=== PATIENT | female | born 1995 | race American Indian/Alaskan Native ===

== ENCOUNTER 2017-06-07 17:31 | Inpatient (IN) | payer MEDICAID ==
[2017-06-07] MEDS ORDERED: AMBIEN PO PRN (23:29)
--- NOTE | 2017-06-08 03:25 | History and Physical Report ---
History of Present Illness Date of examination: 06/08/17 Date of admission: 06/07/17 17:31 Chief complaint: scheduled induction History of present illness: 21y/o @ 39+6 weeks presents for induction of labor secondary to prior history of a 26 week demise. The patient initiated care in this @ 14 weeks. Her has been complicated by a prior demise, cleft palate in the fetus, asthma, +GBS. The patient is positive for HSV but denies any recent prodrome. Past History Past Medical History: asthma Past Surgical History: no surgical history [employer] History: herpes, other (+GBS) Social history: - Obstetrical History Expected Date of Delivery: 06/09/17 Actual Gestation: 39 Week(s) 6 Day(s) : 3 Para: 1 Hx # Term Pregnancies: 1 Number of Pregnancies: 1 (26 demise) Spontaneous Abortions: 0 Induced : 0 Number of Living Children: 1 Medications and Allergies Allergies Allergy/AdvReac Type Severity Reaction Status Date / Time No Known Allergies Allergy Unverified 06/07/17 18:30 Active Meds: Active Medications Zolpidem Tartrate (Ambien) 10 mg PO QHS PRN PRN Reason: Insomnia Last Admin: 06/07/17 23:34 Dose: 10 mg Review of Systems All systems: negative Genitourinary: no leakage of fluid, no contractions - Vital Signs Vital signs: Vital Signs Pulse BP Pulse Ox 105 H 138/73 100 06/07/17 18:02 06/07/17 18:02 06/07/17 18:02 Temp Pulse Resp BP Pulse Ox 97.6 F 91 H 16 114/58 99 06/07/17 23:36 06/07/17 23:40 06/07/17 23:36 06/07/17 23:40 06/07/17 23:40 - Physical Exam Breasts: Positive: deferred Cardiovascular: Regular rate Lungs: Positive: Clear to auscultation Abdomen: Positive: normal appearance Results All other labs normal. Assessment and Plan - Patient Problems (1) Prior with demise Current Visit: Yes Status: Acute Plan to address problem: admit for induction of labor (2) complicated by cleft lip Current Visit: Yes Status: Acute
[2017-06-08] MEDS ORDERED: BRETHINE IVP PRN (03:27)
[2017-06-08] MEDS ORDERED: POLYCILLIN/NS 2 GM/100 ML 2 GM/100 ML BAG IV ONE ×2 (03:27→20:00)
[2017-06-08] MEDS ORDERED: BRETHINE SUB-Q PRN (03:27)
[2017-06-08] MEDS ORDERED: ePHEDrine SULFATE IV PRN (03:27)
[2017-06-08] MEDS ORDERED: XYLOCAINE 2% INFILTRATI ONE (03:27)
[2017-06-08] MEDS ORDERED: MINERAL OIL PO PRN (03:27)
[2017-06-08] MEDS ORDERED: CERVIDIL VG ONE (03:37)
[2017-06-08] MEDS ORDERED: PITOCin/NS 30 UNIT/500ML 30 UNITS/500 ML BAG IV SCH (04:00)
[2017-06-08] MEDS ORDERED: PITOCin/NS 20 UNIT/1000ML DRIP 20 UNITS/1,000 ML BAG IV SCH (04:00)
[2017-06-08 06:01] LABS: Hematocrit 28.4 % (30.3-42.9); Hemoglobin 8.7 gm/dl (10.1-14.3); Mean Corpuscular HGB Conc 31 % (30-34); Platelet Count 266 K/mm3 (140-440); Red Blood Count 4.42 M/mm3 (3.65-5.03); Red Cell Distribution Width 19.6 % (13.2-15.2)
[2017-06-08 07:02] LABS: Mean Corpuscular Hemoglobin 20 pg (28-32); Mean Corpuscular Volume 64 fl (79-97)
[2017-06-08] MEDS ORDERED: AMPICILLIN/NS 1 GM/50 ML 1 GM/50 ML BAG IV SCH (07:29)
[2017-06-08] MEDS: LACTATED RINGERS 1,000 ML IV SCH (19:43)
[2017-06-08] MEDS: STADOL IV PRN (19:52)
[2017-06-09] MEDS: AMPICILLIN/NS 1 GM/50 ML 1 GM/50 ML BAG IV SCH ×3 (00:10→08:17)
[2017-06-09] MEDS: STADOL IV PRN ×2 (04:28→07:52)
[2017-06-09] MEDS: LACTATED RINGERS 1,000 ML IV SCH ×3 (04:31→11:28)
[2017-06-09] MEDS ORDERED: NARCAN 2 MG/2 ML IV PRN (08:42)
[2017-06-09] MEDS ORDERED: ePHEDrine SULFATE IV PRN (08:42)
[2017-06-09] MEDS ORDERED: fentaNYL-BUPIV 2 MCG/ML-0.125% 200 MCG/100 ML BAG EPIDURAL SCH (09:00)
[2017-06-09] MEDS ORDERED: XYLOCAINE 2% INFILTRATI ONE (09:09)
[2017-06-09] MEDS ORDERED: DULCOLAX PR PRN (12:05)
[2017-06-09] MEDS ORDERED: TUCKS PAD TP PRN (12:05)
[2017-06-09] MEDS ORDERED: LANSINOH TP PRN (12:05)
[2017-06-09] MEDS ORDERED: BENADRYL PO PRN (12:05)
[2017-06-09] MEDS ORDERED: MILK OF MAGNESIA PO PRN (12:05)
[2017-06-09] MEDS ORDERED: PHENERGAN PR PRN (12:05)
[2017-06-09] MEDS ORDERED: TYLENOL PO PRN (12:05)
[2017-06-09] MEDS ORDERED: NORCO 5/325 PO PRN (12:05)
[2017-06-09] MEDS ORDERED: ZOFRAN IV PRN (12:05)
[2017-06-09] MEDS ORDERED: PHENERGAN PO PRN (12:05)
--- NOTE | 2017-06-09 12:05 | Procedure Note ---
OB Delivery Note - Delivery Date of Delivery: 06/09/17 Surgeon: EASTON QURESHI Estimated blood loss: 100cc - Vaginal Delivery presentation: vertex Delivery position: OA Intrapartum events: none Delivery augmentation: rupture of membranes, pitocin Delivery monitor: external FHT Route of delivery: Delivery placenta: spontaneous Delivery cord: 3 umbilical vessels Episiotomy: none Delivery laceration: none Anesthesia: epidural Delivery comments: Patient progressed to C/C/+2 and pushed to deliver a liveborn male infant with apgars of 8/9. After delivery of the head and shoulders, the cord was clamped and cut and the passed to peds in attendance. The placenta delivered spontaneously intact with a 3VC. No lacerations appreciated. The infant was evaluated with suspected findings of a cleft lip. The palate did not appear to be affected. Weight 7lbs 11oz. EBL 100ml - Infant A at 1 minute: 8 at 5 minutes: 9 Gender: Male (weight 7lbs 11oz)
[2017-06-09] MEDS ORDERED: SODIUM CHLORIDE FLUSH SYRINGE 10 ML IV NR (13:00)
[2017-06-09] MEDS: MOTRIN PO SCH (17:50)
[2017-06-10] MEDS: MOTRIN PO SCH ×2 (01:15→06:05)
[2017-06-10 02:36] LABS: Hematocrit 29.1 % (30.3-42.9); Hemoglobin 9.1 gm/dl (10.1-14.3)
--- NOTE | 2017-06-10 08:02 | Progress Note ---
Assessment and Plan A: PPD#1 s/p at term, known cleft lip P: Routine care. Anticipate discharge tomorrow. Subjective - Subjective Date of service: 06/10/17 Principal diagnosis: s/p at term, with known cleft lip Interval history: Pt without complaints. Voiding normally. Bleeding minimal. Pt reports that she plans to call the craniofacial surgeon today to make further plans for surgery. Patient reports: appetite normal, voiding normally, pain well controlled, ambulating normally : doing well Objective - Vital Signs Latest vital signs: Vital Signs Temp Pulse Resp BP BP Pulse Ox 06/10/17 00:48 97.9 F 101 H 20 107/45 99 06/09/17 21:34 98.1 F 98 H 20 131/67 96 06/09/17 17:50 18 06/09/17 15:00 98.1 F 74 18 136/71 98 06/09/17 13:00 80 110/56 06/09/17 12:46 77 112/58 06/09/17 12:34 73 117/58 06/09/17 12:30 73 18 117/58 06/09/17 12:16 82 124/64 98 06/09/17 12:15 97.6 F 75 18 124/64 98 06/09/17 11:54 74 122/59 06/09/17 11:52 63 90 06/09/17 11:50 71 124/57 06/09/17 11:47 76 100 06/09/17 11:44 76 127/67 06/09/17 11:42 71 94 06/09/17 11:40 80 125/59 06/09/17 11:37 68 100 06/09/17 11:34 78 118/64 06/09/17 11:32 66 100 06/09/17 11:31 90 119/56 06/09/17 11:27 73 100 06/09/17 11:24 73 124/58 06/09/17 11:22 66 100 06/09/17 11:19 64 126/58 06/09/17 11:17 79 100 06/09/17 11:14 73 119/59 06/09/17 11:12 62 100 06/09/17 11:10 64 123/60 06/09/17 11:07 76 100 06/09/17 11:04 63 125/58 02/25/18 11:02 65 100 02/18 11:00 63 121/56 0218 10:57 65 100 02/18 10:54 64 114/55 0218 10:52 86 100 02/18 10:50 68 114/59 06/09/18 10:47 64 100 02/18 10:44 67 109/57 18 10:42 61 100 18 10:41 62 121/59 0218 10:37 66 100 06/09/18 10:34 68 117/58 18 10:32 71 100 06/09/18 10:31 62 118/58 18 10:27 63 100 18 10:25 67 117/59 18 10:22 75 100 18 10:19 77 113/64 18 10:17 80 100 18 10:14 78 114/59 18 10:12 67 100 18 10:09 72 105/52 18 10:07 75 98 18 10:05 70 116/58 18 10:02 87 100 18 10:01 80 110/56 18 09:57 65 98 18 09:54 76 107/54 18 09:52 73 99 18 09:50 73 117/58 18 09:47 82 98 18 09:44 64 122/57 18 09:43 63 125/61 18 09:42 77 98 18 09:40 84 110/53 0218 09:38 74 119/59 18 09:37 85 100 18 09:36 80 112/55 18 09:34 78 109/52 0218 09:32 83 108/55 98 18 09:30 78 119/59 02/18 09:28 78 118/59 18 09:27 97 H 97 18 09:26 90 113/55 0218 09:24 69 120/55 02/25/18 09:22 74 124/61 98 06/09/17 09:20 83 131/65 06/09/17 09:18 77 118/55 06/09/17 09:17 89 99 06/09/17 09:16 82 117/60 06/09/17 09:15 85 118/60 06/09/17 09:12 70 133/61 99 06/09/17 09:10 70 118/56 06/09/17 09:08 67 123/60 06/09/17 09:07 83 99 06/09/17 09:06 68 125/58 06/09/17 09:03 97.5 F L 64 18 120/56 100 06/09/17 09:02 64 120/56 100 06/09/17 08:57 77 98 06/09/17 08:31 73 134/65 Intake and Output 06/09/17 06/10/17 06/10/17 22:59 06:59 14:59 Intake Total 360 Balance 360 Intake: Intake, Free Water 360 Other: # Voids Void 2 - Exam Breasts: Present: deferred Cardiovascular: Present: Regular rate Lungs: Present: Clear to auscultation Abdomen: Present: soft Uterus: Present: fundal height below umbilicus Extremities: Present: normal - Labs Labs: Abnormal lab results 06/10/17 Range/Units 02:20 Hgb 9.1 L (10.1-14.3) gm/dl Hct 29.1 L (30.3-42.9) %
--- NOTE | 2017-06-10 08:09 | Discharge Summary ---
Providers - Providers Date of Admission: 06/07/17 17:31 Date of discharge: 06/11/17 Attending physician: OMAYRA CANADA MD Primary care physician: OMAYRA CANADA MD Hospitalization Reason for admission: induction of labor Delivery: Procedure details: Please see delivery note. Episiotomy: none Laceration: none Other procedures: none complications: none Discharge diagnosis: IUP at term delivered baby: male Hospital course: Pt was admitted for induction of labor. She went on to have a viable male via . Her course was uncomplicated and she met discharge criteria on PPD2. Condition at discharge: Stable Disposition: DC-01 TO HOME OR SELFCARE - Discharge Diagnoses (1) Obesity Status: Acute Qualifiers: Obesity type: unspecified obesity type Body mass index: BMI 40.0-44.9 (2) Term of male Status: Acute (3) complicated by cleft lip Status: Acute Qualifiers: Fetus number: single or unspecified fetus Qualified Code(s): O35.8XX0 - Maternal care for other (suspected) abnormality and damage, not applicable or unspecified (4) Prior with demise Status: Acute Plan - Discharge Medications Prescriptions: Docusate Sodium [Colace] 100 mg PO BID PRN #60 capsule PRN Reason: Constipation Ferrous Sulfate [Feosol] 325 mg PO BID #60 tablet HYDROcodone/APAP 5-325 [[place] 5/325] 1 each PO Q6HR PRN #30 tablet PRN Reason: Pain Ibuprofen [Motrin] 800 mg PO Q8HR PRN #30 tablet PRN Reason: Pain - Provider Discharge Summary Activity: routine, no sex for 6 weeks, no heavy lifting 4 weeks, no strenuous exercise Diet: routine Instructions: routine Additional instructions: [] Smoking cessation referral if applicable(refer to patient education folder for contact #) [] Refer to [facility] Booklet Call your doctor immediately for: * Fever > 100.5 * Heavy vaginal bleeding ( >1 pad per hour) * Severe persistent headache * Shortness of breath * Reddened, hot, painful area to leg or breast * Drainage or odor from incision. * Keep incision clean and dry at all times and follow doctor's instructions regarding bathing/showering - Follow up plan Follow up: MARY BRITTON MD [Staff Physician] - 07/08/17 (please call for appt )
[2017-06-10] MEDS ORDERED: MOTRIN PO PRN (08:30)
[2017-06-11 09:01] VITALS: BP 123/60
== END 2017-06-11 12:02 | disposition home or self-care (01) | DRG 774 ==
LOC: LD 17:31 → OB 06-09 15:21
PROVIDERS: ADMIT Obstetrics & Gynecology; ATTEND Obstetrics & Gynecology
PROC: 10E0XZZ Delivery of Products of Conception, External Approach (ICD-10-PCS; principal; 2017-06-09)
PROC: 3E0R3BZ Introduction of Anesthetic Agent into Spinal Canal, Percutaneous Approach (ICD-10-PCS; 2017-06-09)
PROC: 00HU33Z Insertion of Infusion Device into Spinal Canal, Percutaneous Approach (ICD-10-PCS; 2017-06-09)
DX: O35.8XX0 Maternal care for other (suspected) fetal abnormality and damage, not applicable or unspecified (principal); O98.32 Other infections with a predominantly sexual mode of transmission complicating childbirth; Z3A.39 39 weeks gestation of pregnancy; Z37.0 Single live birth; O99.52 Diseases of the respiratory system complicating childbirth; O99.824 Streptococcus B carrier state complicating childbirth; J45.909 Unspecified asthma, uncomplicated; O99.214 Obesity complicating childbirth; E66.9 Obesity, unspecified; Z68.41 Body mass index [BMI] 40.0-44.9, adult; A60.00 Herpesviral infection of urogenital system, unspecified
CPT/HCPCS: 36415; 59200; 85014; 85018; 85027; 86592; 86850; 86900; 86901; 99211; G0463; J0290; J0595; J2590; J7120

== ENCOUNTER 2020-03-28 12:40 | Inpatient (IN) | payer BC, MEDICAID ==
[2020-03-28] MEDS ORDERED: ePHEDrine SULFATE 50 MG/1 ML INJ IV PRN (12:58)
[2020-03-28] MEDS ORDERED: MINERAL OIL 30 ML ORAL LIQD PO PRN (12:58)
[2020-03-28] MEDS ORDERED: TERBUTALINE 1 MG/1 ML INJ SUB-Q PRN (12:58)
[2020-03-28] MEDS ORDERED: OXYTOCIN DRIP 30 UNITS/500 ML BAG IV SCH (13:00)
[2020-03-28] MEDS ORDERED: LACTATED RINGERS 1,000 ML IV SCH (13:00)
[2020-03-28] MEDS ORDERED: PROMETHAZINE 25 MG RECT SUPP PR PRN (13:09)
[2020-03-28] MEDS ORDERED: ONDANSETRON 4 MG/2 ML INJ IV PRN (13:09)
[2020-03-28] MEDS ORDERED: PROMETHAZINE 25 MG TAB PO PRN (13:09)
[2020-03-28] MEDS ORDERED: WITCH HAZEL/ GLYCERIN PAD TP PRN (13:09)
[2020-03-28] MEDS ORDERED: diphenhydrAMINE 25 MG CAP PO PRN (13:09)
[2020-03-28] MEDS ORDERED: LANOLIN/ZINC/DIMETHICONE (LANSINOH) 7 GM TP PRN (13:09)
[2020-03-28] MEDS ORDERED: MAGNESIUM HYDROXIDE (MOM) ORAL LIQD UDC PO PRN (13:09)
[2020-03-28] MEDS: IBUPROFEN 600 MG TAB PO SCH ×2 (13:25→23:34)
[2020-03-28] MEDS ORDERED: ceFAZolin/Water 2 GM/20 ML 2 GM/20 ML SYRINGE IV ONE (14:04)
--- NOTE | 2020-03-28 14:54 | Procedure Note ---
OB Delivery Note - Delivery Date of Delivery: 03/28/20 Estimated blood loss: <100cc - Vaginal Delivery presentation: vertex Delivery induction: none Delivery monitor: none Route of delivery: Delivery placenta: spontaneous Delivery cord: 3 umbilical vessels Episiotomy: none Delivery laceration: none Anesthesia: none Delivery comments: Live male along with placenta delivered at home. Pt arrived via ambulance. Upon examination FF@ U2. No active vag bleeding was noted. An exploration of tears revealed none. IV Pitocin started. Mom and baby left in stable condition with nurse. EBL 100cc. - Infant A Infant Gender: Male
--- NOTE | 2020-03-28 15:03 | History and Physical Report ---
History of Present Illness Date of examination: 03/28/20 Date of admission: 03/28/20 12:40 Chief complaint: "I'm fine now" History of present illness: 24 y/o presented to [facility] L&D with a live male whom was delivered at home. Mom and baby were in no distress. Pt states she initiated her pnc at [facility] location and had no complications. JEWELL 04/01/20. Pt is . She denies med/surgical hx but she is a smoker. Family hx of htn, heart disease, asthma, DM, and Alzheimers. Pt's records were not avail. Mom and baby were admitted to room 2002 and assessed. Past History Past Medical History: no pertinent history Past Surgical History: no surgical history Family/Genetic History: diabetes, heart disease, hypertension, other (alzheimers) Social history: , smoking - Obstetrical History Expected Date of Delivery: 04/01/20 Actual Gestation: 39 Week(s) 3 Day(s) : 4 Para: 3 Number of Living Children: 3 Medications and Allergies Allergies Allergy/AdvReac Type Severity Reaction Status Date / Time No Known Allergies Allergy Unverified 06/07/17 18:30 Home Medications Medication Instructions Recorded Confirmed Last Taken Type Docusate Sodium [Colace] 100 mg PO BID PRN #60 capsule 06/10/17 Unknown Rx Ferrous Sulfate [Feosol] 325 mg PO BID #60 tablet 06/10/17 Unknown Rx HYDROcodone/APAP 5-325 [[place] 1 each PO Q6HR PRN #30 tablet 06/10/17 Unknown Rx 5/325] Ibuprofen [Motrin] 800 mg PO Q8HR PRN #30 tablet 06/10/17 Unknown Rx Active Meds: Active Medications Bisacodyl (Bisacodyl 10 Mg Rect Supp) 10 mg SC BID PRN PRN Reason: Constipation Diphenhydramine HCl (Diphenhydramine 25 Mg Cap) 25 mg PO Q6H PRN PRN Reason: Itching Ephedrine Sulfate (Ephedrine Sulfate 50 Mg/1 Ml Inj) 10 mg IV Q2M PRN PRN Reason: Hypotension Lactated Ringer's (Lactated Ringers) 1,000 mls @ 125 mls/hr IV DIRECT ETELVINA Oxytocin/Sodium Chloride (Pitocin/Ns 30 Unit/500ml) 30 units in 500 mls @ 40 mls/hr IV TITR ETELVINA; Protocol Ibuprofen (Ibuprofen 600 Mg Tab) 600 mg PO Q6H ETELVINA Last Admin: 03/28/20 13:25 Dose: 600 mg Documented by: Magnesium Hydroxide (Magnesium Hydroxide (Mom) Oral Liqd Udc) 30 ml PO HS PRN PRN Reason: Constipation Mineral Oil (Mineral Oil 30 Ml Oral Liqd) 30 ml PO QHS PRN PRN Reason: Constipation Multi-Ingredient Ointment (Lanolin/Zinc/Dimethicone (Lansinoh) 7 Gm) 1 applic TP PRN PRN PRN Reason: Sore Nipples Ondansetron HCl (Ondansetron 4 Mg/2 Ml Inj) 4 mg IV Q8H PRN PRN Reason: Nausea And Vomiting Promethazine HCl (Promethazine 25 Mg Rect Supp) 25 mg SC Q6H PRN PRN Reason: Nausea And Vomiting Promethazine HCl (Promethazine 25 Mg Tab) 25 mg PO Q6H PRN PRN Reason: Nausea And Vomiting Sodium Chloride (Sodium Chloride 0.9% 10 Ml Flush Syringe) 10 ml IV PRN ETELVINA Terbutaline Sulfate (Terbutaline 1 Mg/1 Ml Inj) 0.25 mg SUB-Q ONCE PRN PRN Reason: Hyperstimulation/Hypertonicity Witch Malini/Glycerin (Witch Malini/ Glycerin Pad) 1 each TP PRN PRN PRN Reason: Hemorrhoid/cleansing/soothing Review of Systems All systems: negative Eyes: deferred Ears, nose, mouth and throat: deferred Breasts: normal Genitourinary: normal appearance Rectal Exam: deferred - Vital Signs Vital signs: Vital Signs Pulse BP 59 L 118/83 03/28/20 12:49 03/28/20 12:49 Temp Pulse Resp BP Pulse Ox 62 18 138/84 99 03/28/20 14:08 03/28/20 13:25 03/28/20 14:05 03/28/20 14:08 - Physical Exam Breasts: Positive: normal Abdomen: Positive: normal appearance, soft, normal bowel sounds, other (post ) Genitourinary (Female): Positive: normal external genitalia, normal perenium Vulva: both: normal Vagina: Positive: normal moisture Uterus: Positive: enlarged, normal contour, other (post ) Adnexa: both: normal Anus/Rectum: Positive: normal perianal skin Extremities: Positive: normal Results All other labs normal. Assessment and Plan A: S/P live male p: Admit to L&D for PP assess Obtain MR from [facility]
[2020-03-28 15:22] LABS: Hematocrit 34.3 % (30.3-42.9); Hemoglobin 10.6 gm/dl (10.1-14.3); Mean Corpuscular HGB Conc 31 % (30-34); Mean Corpuscular Volume 70 fl (79-97); Platelet Count 249 K/mm3 (140-440); Red Blood Count 4.87 M/mm3 (3.65-5.03); Red Cell Distribution Width 17.4 % (13.2-15.2)
[2020-03-28] MEDS ORDERED: oxyCODONE /ACETAMINOPHEN 5-325MG TAB PO ONE (17:45)
[2020-03-29] MEDS: IBUPROFEN 600 MG TAB PO SCH (05:11)
[2020-03-29 09:13] LABS: Hematocrit 31.2 % (30.3-42.9); Hemoglobin 9.8 gm/dl (10.1-14.3)
--- NOTE | 2020-03-29 13:12 | Discharge Summary ---
Providers - Providers Date of Admission: 03/28/20 12:40 Date of discharge: 03/29/20 (1600) Attending physician: JOSÉ OCHOA JR, MD Primary care physician: JOSÉ OCHOA JR, MD Hospitalization Reason for admission: other (Delivered infant at home) Delivery: Episiotomy: none Laceration: none Other procedures: none complications: none Discharge diagnosis: IUP at term delivered, other (anemia) baby: male Hospital course: See admission H&P; OB delivery summary and PP progress notes Condition at discharge: Stable Disposition: DC-01 TO HOME OR SELFCARE - Discharge Diagnoses (1) Encounter for care after unplanned out of hospital delivery Status: Acute (2) Anemia Status: Acute Qualifiers: Anemia type: iron deficiency Comment: Asymptomatic Plan - Provider Discharge Summary Activity: routine, no sex for 6 weeks, no heavy lifting 4 weeks, no strenuous exercise Diet: other (Iron rich diet) Instructions: routine Additional instructions: [] Smoking cessation referral if applicable(refer to patient education folder for contact #) [] Refer to [facility] Booklet Call your doctor immediately for: * Fever > 100.5 * Heavy vaginal bleeding ( >1 pad per hour) * Severe persistent headache * Shortness of breath * Reddened, hot, painful area to leg or breast - Follow up plan Follow up: JOSÉ OCHOA JR, MD [Primary Care Provider] - 6 Weeks
[2020-03-29 19:17] VITALS: BP 120/67
== END 2020-03-29 19:17 | disposition home or self-care (01) | DRG 776 ==
LOC: LD 12:40 → OB 15:31
PROVIDERS: ADMIT Obstetrics & Gynecology; ATTEND Obstetrics & Gynecology
DX: Z39.0 Encounter for care and examination of mother immediately after delivery (principal); Z20.828 Contact with and (suspected) exposure to other viral communicable diseases
CPT/HCPCS: 36415; 85014; 85018; 85027; 86706; 86762; 86850; 86900; 86901; G0378; U0003